=== PATIENT | female | born 1995 | race Caucasian/White ===

== ENCOUNTER → 2016-10-11 | Outpatient (CLI) | payer OTHER ==
[~2016-10-11] MED LIST: APNO; GUMMI BEAR MUL1 EACH PO; LANSINOH7 GM; MOTRIN800 MG; PERCOCET 5-3251 EACH; PRENATAL 1+1)(P1 TAB
== END ==
LOC: LCOBG 12:29
DX: R63.5 Abnormal weight gain (principal)
CPT/HCPCS: G0145